=== PATIENT | female | born 1945 | race African-American/Black ===

== ENCOUNTER 2024-04-30 21:20 | Emergency (ER) | payer MEDICARE, OTHER ==
[~2024-04-30] VITALS: Ht 162.6 cm; Wt 78.7 kg
--- NOTE | 2024-04-30 23:40 | DVH ---
EXAM: CT HEAD WITHOUT CONTRAST INDICATION: Fall Injury TECHNIQUE: CT of the head without intravenous contrast. Radiation Dose : 1. Head: CT Dose: CTDI volume is 53.22 mGy. Dose-length product is 959.69 mGy*cm The dose indicators for CT are the volume Computed Tomography (CT) Dose Index (CTDIvol) and the Dose Length Product (DLP), and are measured in units of mGy and mGy-cm, respectively. These indicators are not patient dose, but values generated from the CT scanner acquisition factors. The report includes radiation exposure data for exposures received during this examination. COMPARISON: None FINDINGS: There is no evidence of acute intracranial hemorrhage, extra-axial collection, mass effect, midline s hift, herniation or hydrocephalus. The ventricles, sulci and cisterns are age appropriate. The sanchez-white differentiation is intact. Patchy periventricular and subcortical white matter hypoattenuation is nonspecific but may be related to small vessel ischemic disease. The visualized paranasal sinuses and mastoid air cells are clear. The surrounding soft tissues and osseous structures are unremarkable. Right lens replacement. IMPRESSION: No acute intracranial abnormality.
--- NOTE | 2024-04-30 23:49 | DVH ---
XY R SHOULDER 2+ VIEW XRAY INDICATION: fall injury TECHNICAL DATA: 3 views were obtained of the right shoulder. COMPARISON: None Findings/ IMPRESSION: Status post total reverse right shoulder arthroplasty with fracture through the proximal right jose l diaphysis which is adjacent to the humeral prosthesis. The actual hardware demonstrates no evidence of fracturing or dislocation. Right-sided port with catheter tip terminating in the SVC. Partially v isualized right lung is clear.
[2024-05-01] MEDS: HYDROcodone-ACET 5/325MG TAB PO ONE (01:10)
[2024-05-01] MEDS ORDERED: HYDR-4902 PO (01:22)
[2024-05-01] MEDS ORDERED: IBUP200C14 PO (01:22)
--- NOTE | 2024-05-01 01:28 | ED.PDOC ---
History of Present Illness HPI Comments 79 y/o F presents with right-shoulder pain and multiple laceration wounds to her forehead status post mechanical fall and injury, today. Patient endorses on falling onto her right shoulder and scraping her forehead against fake grass after her large-sized dog, that she was walking outside with, lunged and pulled her forward, while holding onto the leash with her right hand. Patient refutes sustaining any additional injuries or losing consciousness. She comments on having a procedure performed on same right shoulder in the past. Patient denies any headache, vision or speech changes, numbness, tingling, limited range of motion with her right arm/shoulder, or other associated symptoms or modifiers at this time. Chief Complaint: Fall Injury Time Seen by MD: 00:35 Primary Care Provider: PIERRE Ureña Notes: Nurses Notes, Medications, Allergies Allergies: Coded Allergies: Carboplatin (Unverified Allergy, Unknown, 06/05/15) Home Meds Active Scripts Ibuprofen (Advil) 200 Mg Cap, 800 MG PO TID, #30 CAP Prov:KYLE OSEGUERA MD 05/01/24 Hydrocodone-Acetaminophen (Hydrocodone Bitartrate/AC 5-325 mg) 1 Tab Tab, 1 TAB PO QIDPRN, #20 TAB Prov:KYLE OSEGUERA MD 05/01/24 Information Source: Patient Mode of Arrival: Ambulatory Severity: Moderate Timing: Hours Duration: Since onset Prehospital treatment: None Past Medical History PAST MEDICAL HISTORY: Cancer (ovarian CA-in remission ), Denies Surgical History: Hysterectomy (complete ), Tonsillectomy Surgical History (Other): proctectomy PER ASSESSMENT NURSE History: No Pertinent PER ASSESSMENT NURSE History Family History Family History: Unknown Social History Smoker: Non-Smoker Alcohol: Denies ETOH Use Drugs: Denies Drug Use Lives In: Home Musculoskeletal: reports: others (right shoulder pain ) Integumetry: reports: laceration (forehead ) All Other Systems: Reviewed and Negative (negative unless otherwise stated above or in HPI) Physical Exam General Appearance: Mild Distress, Normal HEENT: Normal ENT Inspection, Pharynx Normal, TMs Normal Neck: Full Range of Motion, Non-Tender, Normal, Normal Inspection Respiratory: Chest Non-Tender, Lungs Clear, No Accessory Muscle Use, No Respiratory Distress, Normal Breath Sounds Cardiovascular: No Edema, No JVD, No Murmur, No Gallop, Normal Peripheral Puls es, Regular Rate/Rhythm Breast Exam: Deferred Gastrointestinal: No Organomegaly, Non Tender, No Pulsatile Mass, Normal Bowel Sounds, Soft Genitalia: Deferred Pelvic: Deferred Rectal: Deferred Extremities: No calf tenderness, Normal capillary refill, Normal range of motion, No pedal edema, Tender (right shoulder tenderness) Musculoskeletal : Location: Right Extremity Location: Shoulder (Moderate tenderness with decreased range of motion) Apperance: Normal Neurologic: Alert, rn transplant II-XII nml as Tested, No Motor Deficits, Normal Affect, Normal Mood, No Sensory Deficits Cerebellar Function: Normal Reflexes: Normal Skin: Dry, Lacerations (2x verticle laceration wounds to forehead), Normal Color, Warm Lymphatic: No Adenopathy Was a procedure done? Was a procedure done?: No Differential Dx Considerations may include: dislocation, fracture, contusions, bruising, laceration, closed head injury, intracranial bleeding X-Ray, Labs, Meds, VS Vital Signs Date Time Temp Pulse Resp B/P (MAP) Pulse Ox O2 Delivery O2 Flow Rate FiO2 04/30/24 21:37 97.6 76 16 144/103 (117) [address] [address] Ph: [phone] DIAGNOSTIC IMAGING Diagnostic Imaging Report : [id number] Signed PATIENT: HARISH KLEIN ACCT: [id number] UNIT: [id number] : 1945 LOC: ER ROOM / BED: / AGE / SEX: 79 / F ADM STATUS: REG ER SERVICE [id number] ORDERING PHYSICIAN: KYLE OSEGUERA MD PROCEDURE(s): RSHD2 - R SHOULDER 2+ VIEW XRAY REASON: fall injury ORDER NUMBER(s): [id number], ACCESSION NUMBER(s): [id number] XY R SHOULDER 2+ VIEW XRAY INDICATION: fall injury TECHNICAL DATA: 3 views were obtained of the right shoulder. COMPARISON: None Findings/ IMPRESSION: Status post total reverse right shoulder arthroplasty with fracture through the proximal right humeral diaphysis which is adjacent to the humeral prosthesis. The actual hardware demonstrates no evidence of fracturing or dislocation. Right-sided port with catheter tip terminating in the SVC. Partially visualized right lung is clear. ATED BY: ANTHONY TRACY DO DICTATED DATE/TIME: 04/30/242345 SIGNED BY: ANTHONY TRACY DO SIGNED DATE/TIME: 04/30/242345 CC: [address] [address] Ph: [phone] DIAGNOSTIC IMAGING Diagnostic Imaging Report : [id number] Signed PATIENT: HARISH KLEIN ACCT: [id number] UNIT: [id number] : 1945 LOC: ER ROOM / BED: / AGE / SEX: 79 / F ADM STATUS: REG ER SERVICE 13 ORDERING PHYSICIAN: KYLE OSEGUERA MD PROCEDURE(s): HWOCT - HEAD WITHOUT CONTRAST REASON: Fall Injury ORDER NUMBER(s): [id number], ACCESSION NUMBER(s): [id number] EXAM: CT HEAD WITHOUT CONTRAST INDICATION: Fall Injury TECHNIQUE: CT of the head without intravenous contrast. Radiation Dose : 1. Head: CT Dose: CTDI volume is 53.22 mGy. Dose-length product is 959.69 mGy*cm The dose indicators for CT are the volume Computed Tomography (CT) Dose Index (CTDIvol) and the Dose Length Product (DLP), and are measured in units of mGy and mGy-cm, respectively. These indicators are not patient dose, but values generated from the CT scanner acquisition factors. The report includes radiation exposure data for exposures received during this examination. COMPARISON: None FINDINGS: There is no evidence of acute intracranial hemorrhage, extra-axial collection, mass effect, midline shift, herniation or hydrocephalus. The ventricles, sulci and cisterns are age appropriate. The sanchez-white differentiation is intact. Patchy periventricular and subcortical white matter hypoattenuation is nonspecific but may be related to small vessel ischemic disease. The visualized paranasal sinuses and mastoid air cells are clear. The surrounding soft tissues and osseous structures are unremarkable. Right lens replacement. IMPRESSION: No acute intracranial abnormality. ATED BY: ANTHONY TRACY DO DICTATED DATE/TIME: 04/30/248 SIGNED BY: ROSSANA, SAYED W DO SIGNED DATE/TIME: 04/30/24 1197 CC: Radiographic studies are normal. The patient was medicated with Motrin and [place]. She is follow up with the primary care physician. Time of 1ST Reevaluation: 01:05 Reevaluation 1ST: Unchanged Patient Education/Counseling: Diagnosis, Treatment Family Education/Counseling: No Family Present Departure 1 Departure Time of Disposition: 01:38 Impression: Primary Impression: Ground-level fall Additional Impressions: Head trauma Qualified Codes: S09.90XA - Unspecified injury of head, initial encounter Shoulder (girdle) dystocia during labor and deliver, delivered Shoulder symptoms with history of shoulder arthroplasty Disposition: 01 HOME / SELF CARE / HOMELESS Condition: Stable Additional Instructions: Reassessed patient, vital signs stable. Denies any new symptoms. Patient is able to tolerate PO and ambulate/be mobile at their baseline without concern. Risks and benefits of all medications given or prescribed, if any, discussed. All lab work, imaging and diagnostic studies were reviewed by me. The patient was counseled extensively on my clinical impression, diagnosis, expected course of the disease, and plan, including their follow-up care. Will discharge patient. Patient instructed to follow up with Primary Care Physician within 24-48 hours. Strict return precautions given for further exacerbation of symptoms or for new symptoms. The patient was given the opportunity to ask questions and all questions were answered by myself and the nursing/tech staff. Patient is in agreement with the care plan. The patient verbally expressed understanding of the discharge instructions, including the reasons to return to the Emergency Department. e-Prescriptions Ibuprofen (Advil) 200 Mg Cap 800 MG PO TID, #30 CAP Prov: KYLE OSEGUERA MD 05/01/24 Hydrocodone-Acetaminophen (Hydrocodone Bitartrate/AC 5-325 mg) 1 Tab Tab 1 TAB PO QIDPRN, #20 TAB Prov: KYLE OSEGUERA MD 05/01/24 Critical Care Note Critical Care Time?: No Stability Stability form required: No Heart Score Heart Score: Heart Score Response (Comments) Value History N/A 0 EKG N/A 0 Age N/A 0 Risk Factors N/A 0 Troponin N/A 0 Total 0 I personally scribed for KYLE OSEGUERA MD ([email or web address]) on 05/01/24 at 01:28. Electronically submitted by Edgar Snyder ([email or web address]). KYLE OSEGUERA MD May 01, 2024 01:28
[2024-05-01 02:36] VITALS: BP 186/88; PULSE 63; RESP 18; TEMP 97.7; O2SAT 100
== END 2024-05-01 02:39 | disposition home or self-care (01) ==
LOC: ER 21:20
DX: S01.81XA Laceration without foreign body of other part of head, initial encounter (principal); S49.81XA Other specified injuries of right shoulder and upper arm, initial encounter; Z79.1 Long term (current) use of non-steroidal anti-inflammatories (NSAID); Z90.710 Acquired absence of both cervix and uterus; Z96.611 Presence of right artificial shoulder joint; W01.110A Fall on same level from slipping, tripping and stumbling with subsequent striking against sharp glass, initial encounter; Y93.01 Activity, walking, marching and hiking; Y92.89 Other specified places as the place of occurrence of the external cause; Y99.8 Other external cause status
CPT/HCPCS: 70450; 73030